=== PATIENT | female | born 1935 | race American Indian/Alaskan Native ===

== ENCOUNTER 2017-10-16 08:41 | Outpatient (CLI) | payer MEDICARE ==
--- NOTE | 2017-10-16 11:19 | Mammography Report ---
BILATERAL MAMMOGRAM with CAD: HISTORY:Cancer screening. Comparison study is dated September 26, 2016. FINDINGS: The breasts are almost entirely fat (<25% glandular). No mass, distortion, suspicious calcification, or skin change is seen. A single biopsy clip is noted on the left. Stable benign-appearing microcalcifications are noted in the left upper lateral breast. IMPRESSION: Negative mammogram. There is no mammographic evidence of malignancy. RECOMMENDATION: Follow-up per ACS guidelines. BI-RADS CATEGORY: 1 = Negative ACR BI-RADS MAMMOGRAPHIC CODES: 0 = Needs additional imaging evaluation; 1 = Negative; 2 = Benign; 3 = Probably benign; 4 = Suspicious; 5 = Malignant; 6 = Known biopsy-proven malignancy COMMENT: 1. Dense breast tissue, i.e., adenosis, fibrocystic changes, etc., may obscure an underlying neoplasm. 2. Approximately 10% of cancers are not detected with mammography. 3. A negative mammography report should not delay biopsy if a clinically suspicious mass is present. COMMENT: Patient follow-up letters are generated in [employer].
== END 2017-10-16 08:42 | disposition home or self-care (01) ==
LOC: MAMMO 08:41
PROVIDERS: ATTEND Internal Medicine
DX: Z12.31 Encounter for screening mammogram for malignant neoplasm of breast (principal)
CPT/HCPCS: 77067; G0202